=== PATIENT | female | born 1995 | race Caucasian/White ===

== ENCOUNTER 2022-08-08 18:45 | Inpatient (IN) | payer BC ==
[~2022-08-08] VITALS: Ht 160 cm; Wt 60.0 kg
[2022-08-08 20:00] LABS: BASOPHILS % (AUTO) 0.1 % (0-1); EOSINOPHILS # (AUTO) 0.1 X10'3 (0-0.9); EOSINOPHILS % (AUTO) 0.7 % (0-6); HEMATOCRIT 39.5 % (35.0-45.0); HEMOGLOBIN 13.7 g/dl (12.0-16.0); LYMPHOCYTES # (AUTO) 1.7 X10'3 (1.1-4.8); LYMPHOCYTES % (AUTO) 18.2 % (21-51); MEAN CORPUSCULAR HEMOGLOBIN 30.7 PG (27.0-31.0); MEAN CORPUSCULAR HGB CONC 34.7 g/dL (33.0-36.5); MEAN CORPUSCULAR VOLUME 88.5 FL (78-98); MONOCYTES # (AUTO) 0.6 X10'3 (0-0.9); MONOCYTES % (AUTO) 6.8 % (2-12); NEUTROPHILS # (AUTO) 6.9 X10'3 (1.8-7.7); NEUTROPHILS % (AUTO) 74.2 % (42-75); PLATELET COUNT 213 X10'3 (140-440); RED BLOOD COUNT 4.47 X10'6 (4.20-5.60); RED CELL DISTRIBUTION WIDTH 12.7 % (11.5-14.5); WHITE BLOOD COUNT 9.3 X10'3 (4.5-11.0)
[2022-08-08 20:14] LABS: ALANINE AMINOTRANSFERASE 28 U/L (12-78); ALBUMIN 4.2 G/DL (3.4-5.0); ALBUMIN/GLOBULIN RATIO 1.1 (1.1-1.5); ALKALINE PHOSPHATASE 57 IU/L (46-116); ANION GAP 9 (8-16); ASPARTATE AMINO TRANSFERASE 22 U/L (10-37); BILIRUBIN,TOTAL 0.7 MG/DL (0.1-1.0); BLOOD UREA NITROGEN 14 MG/DL (7-18); BUN/CREATININE RATIO 19.7 (6.6-38.0); CALCIUM 9.9 MG/DL (8.5-10.1); CHLORIDE 102 MMOL/L (99-107); CREATININE 0.71 MG/DL (0.40-0.90); ETHANOL < 0.010 GM/DL (0.0-0.010); GLUCOSE 103 MG/DL (70-104); POTASSIUM 3.6 MMOL/L (3.5-5.1); SODIUM 136 MMOL/L (135-145); TOTAL CARBON DIOXIDE 24.6 MMOL/L (24-32); eGFR > 90 ML/MIN
[2022-08-08 20:17] LABS: ACETAMINOPHEN < 2.0 UG/ML (10-30)
[2022-08-08] MEDS ORDERED: HYDR-3686 PO ×2 (22:39)
--- NOTE | 2022-08-08 22:41 | NUR ---
The patient moved to bed 24 in the ER overflow. She appears sad and depressed. She stated that approximately one year ago she was diagnoised bipolar 2 but has since gone off her medications because her and her are trying to have a baby. She has been very depressed and has been having increased suicidal thinking, poor sleep and high anxiety. Her is very supportive and he was made aware of the visiting hours.
--- NOTE | 2022-08-08 22:48 | NUR ---
; GLYNN [phone]
[2022-08-08 22:54] LABS: URINE HCG NEGATIVE (NEG)
[2022-08-08 22:57] LABS: CLARITY,URINE SLIGHTLY CLOUDY (Clear); COLOR,URINE YELLOW (Yellow); GLUCOSE, URINE NEGATIVE (Neg); KETONES,URINE >=80 mg/dl (Neg); LEUKOCYTE ESTERASE ,URINE NEGATIVE (Neg); NITRITES, URINE NEGATIVE (Neg); OCCULT BLOOD,URINE NEGATIVE (Neg); PH,URINE 5.5 (4.8-8.0); PROTEIN,URINE NEGATIVE (Neg); UROBILINOGEN,URINE 0.2 E.U/dL (0.2-1.0)
[2022-08-08 22:58] LABS: UA COLLECTION TYPE CLN CATCH MIDSTREAM
[2022-08-08 23:01] LABS: URINE AMPHETAMINE SCREEN NEGATIVE (Neg); URINE BARBITUATE SCREEN NEGATIVE (Neg); URINE BENZODIAZEPINES SCREEN NEGATIVE (Neg); URINE CANNABINOID SCREEN NEGATIVE (Neg); URINE COCAINE SCREEN NEGATIVE (Neg); URINE METHADONE SCREEN NEGATIVE (Neg); URINE OPIATE SCREEN NEGATIVE (Neg); URINE PHENCYCLIDINE SCREEN NEGATIVE (Neg)
[2022-08-08 23:03] LABS: BACTERIA,URINE 1+ /HPF (Neg); MUCUS STRANDS MANY /LPF (Neg); SQUAMOUS EPITHELIAL CELL,UR MANY /LPF (FEW)
[2022-08-08 23:04] LABS: RBC,URINE 0-2 /HPF (0-2); WBC,URINE 0-4 /HPF (0-4)
[2022-08-08 23:05] LABS: TRANSITIONAL EPI CELLS,URINE FEW /HPF
--- NOTE | 2022-08-09 00:10 | NUR ---
The patient appears to be sleeping
--- NOTE | 2022-08-09 00:11 | NUR ---
PACKET SENT TO [facility]
--- NOTE | 2022-08-09 01:25 | NUR ---
The patient appears to be sleeping
--- NOTE | 2022-08-09 03:05 | NUR ---
The patient is resting on her bed but restless at times
--- NOTE | 2022-08-09 05:04 | NUR ---
The patient appears to be sleeping
--- NOTE | 2022-08-09 07:05 | NUR ---
Patient awake early to call her work. Denies needs.
[2022-08-09] MEDS: hydrOXYzine 25 MG tablet PO SCH ×3 (07:14→21:00)
--- NOTE | 2022-08-09 08:00 | NUR ---
Patient chose not to eat breakfast. Denies needs.
--- NOTE | 2022-08-09 08:52 | NUR ---
Patient's Zeferino here to visit.
--- NOTE | 2022-08-09 10:46 | NUR ---
Patient's still here visiting his .
--- NOTE | 2022-08-09 11:38 | NUR ---
Patient appears to be sleeping. No s/sx of distress.
--- NOTE | 2022-08-09 13:45 | NUR ---
The patient is lying on her bed reading.
--- NOTE | 2022-08-09 14:44 | NUR ---
Patient accepted to [facility], who will take her up at ~1900.
--- NOTE | 2022-08-09 16:06 | NUR ---
Patient lying on her left side, attempting to fall asleep.
[2022-08-09] MEDS ORDERED: hydrOXYzine 25 MG tablet PO ONE (18:45)
[2022-08-09] MEDS ORDERED: mag hydrox/Alum hydrox/simeth 30ml oral suspension PO PRN (22:15)
[2022-08-09] MEDS ORDERED: magnesium hydroxide 30ml (MOM) UD suspension PO PRN (22:15)
[2022-08-09] MEDS ORDERED: loperamide 2mg capsule PO PRN (22:15)
[2022-08-09] MEDS ORDERED: traZODone 50mg tablet PO PRN (22:15)
[2022-08-09] MEDS ORDERED: acetaminophen 325mg tablet PO PRN ×2 (22:15)
[2022-08-09] MEDS ORDERED: LORazepam 1 MG tablet PO ONE (22:50)
[2022-08-09 23:19] VITALS: BP 113/74
--- NOTE | 2022-08-10 05:09 | NUR ---
MONUMENT CARVER NOTE: LEGAL HOLD: 5150 for DTS PSYCH HX: Reports diagnosis of Bipolar DO. Reports similar episode of suicidal ideation one year ago. Client is not taking [place] prescribed by her MD. No prior inpatient psych admits. Hx of childhood trauma. Depression/Anxiety. REASON FOR ADMIT: Client self-presented to ED c/o anxiety, depression, and suicidal ideation. She does not have a specific plan. Reported that she was getting things in order in the event of her . INTERVENTION: Admission assessments. Q 15 minute checks for safety. RESPONSE: Client arrived on the unit at 22:32, in a wheelchair, accompanied by Ari Mcneal. Client changed into green scrubs. Client was silent and continuously looked around the room. Affect and mood are anxious. Initially she did not make eye contact. Eventually client stated "I don't want to be here. I want to go home." This RN explained the 5150 process to client. She acknowledged understanding. Client accepted 1 mg Ativan PO for anxiety. She was escorted to her room. Fell asleep w/o difficulty.
[2022-08-10 08:00] VITALS: BP 109/67
[2022-08-10 10:18] LABS: CHOLESTEROL 228 MG/DL (0-200); HDL CHOLESTEROL 76 MG/DL (35-60); LDL CHOLESTEROL 127 MG/DL (50-100); TRIGLYCERIDES 57 MG/DL (20-135)
[2022-08-10 10:26] LABS: HEMOGLOBIN A1C 5.3 % (4.5-6.2)
[2022-08-10] MEDS: hydrOXYzine 25 MG tablet PO SCH ×3 (10:28→19:45)
--- NOTE | 2022-08-10 12:11 | NUR ---
Hazel is a 27 y/o female who presented to [facility] ED with suicidal ideation. She reported feeling depressed and hopeless. 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 She would not disclose a plan and reported a previous suicide attempt a year ago.She was previously diagnosed with Bipolar and stopped taking lithium due to a desire to conceive. She was placed on 5150 for danger to self and placed at [facility]. Irena presents as significantly depressed, "I just want to disappear". She reported she has been struggling with anxiety and "big emotions". She reported she has been taking hydroxyzine 4 times/day to help control anxiety. Ct reported she had an "episode and could not control my emotions". 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 She stated several times, "I just want to disappear". She reported she sees a psychiatrist locally, however, could not remember her name. She was previously in counseling while at [facility]. She reported difficulty finding a counselor. Irena gave writer technical publications verbal permission to call her , Zeferino. Will do so to gather additional information. MSE: A/O: oriented x's 4 Appearance: disheveled, malodorous Behavior:cooperative, scared Speech: WNL Mood: depressed Affect: depressed Thought Process: linear Thought Content: depressed, wants to disappear ROX Ureña Addendum: 08/10/22 at 1215 by Rebeca Lomax Amended: Links added.
--- NOTE | 2022-08-10 14:47 | NUR ---
: Zeferino-# [phone] Spoke to Hazel's , Zeferino, to try to gather additional information. He was not sure where she sees a psych provider or the persons name. He expressed concern that she may get discharged on Sun because he has to work on Saturday at 2 PM and cannot miss work. He reported there are no guns in the home. ROX Ureña
--- NOTE | 2022-08-10 15:34 | NUR ---
Nursing Progress Note: Problem : Client self-presented to ED c/o anxiety, depression, and suicidal ideation. She does not have a specific plan. Reported that she was getting things in order in the event of her .Reports diagnosis of Bipolar DO. Reports similar episode of suicidal ideation one year ago. Client is not taking [employer] prescribed by her MD. No prior inpatient psych admits. Hx of childhood trauma. Depression/Anxiety. Interventions : Introduced self and attempted to establish rapport, maintained a safe and supportive environment, provided clear and simple instructions, provided active listening and positive encouragement, encouraged participation on the unit, and maintained Q 15min safety checks. Response : Received pt. sleeping in bed at the beginning of the shift, she was awoken for breakfast however refused, and continued to sleep until approximately nine forty-five. Pt. then immediately attended a meeting with the case management social worker, and afterwards ate breakfast in her room and scheduled Atarax was administered. Pt. presents as cooperative, anxious, guarded and withdrawn. She makes what appears to be a delusional statement and questions this policy writer typist, "Who is in the bed next to me? 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 When questioned regarding S/I, pt. states, "I'm just sad." Pt. continues to perseverate on her desire to return home. She was able to make a telephone call to her and some belongings were dropped off for her. Pt. isolated in bed sleeping throughout much of the shift. She refused her scheduled afternoon dose of Atarax and stated, "I'm just going to sleep." Plan : Pt. requires interruption of current crisis, medication adjustments, and a safe and supportive environment.
[2022-08-10] MEDS: prazosin 1mg capsule PO SCH (19:46)
[2022-08-10 20:00] VITALS: BP 110/77
--- NOTE | 2022-08-11 01:26 | NUR ---
Nursing Progress Note: Problem : Client self-presented to ED c/o anxiety, depression, and suicidal ideation. She does not have a specific plan. Reported that she was getting things in order in the event of her .Reports diagnosis of Bipolar DO. Reports similar episode of suicidal ideation one year ago. Client is not taking [place] prescribed by her MD. No prior inpatient psych admits. Hx of childhood trauma. Depression/Anxiety. Interventions : Introduced self and attempted to establish rapport, maintained a safe and supportive environment, provided clear and simple instructions, provided active listening and positive encouragement, encouraged participation on the unit, and maintained Q 15min safety checks. Response : Patient in Rec room watching TV and eating dinner. Patient labile stating, "I dont belong here." Patient denies AV/H SI HI. pt reports feeling sad but no longer has a plan to harm herself. The patient continued to self isolate in Rec room watching TV for most of the evening. Patient ate snack in her room. Patient took evening meds w/o complications. The patient came to this nurse shortly after med pass that her room mate was speaking to herself and was scaring her. The patient began crying again reporting that she wasn't a bad person and she doesn't belong here. This nurse was able to calmly to talk to the patient about what was scaring her and offer her Trazodone for sleep. Trazodone was given with good effect. The patient went to bed shortly after. Plan : Pt. requires interruption of current crisis, medication adjustments, and a safe and supportive environment.
[2022-08-11 07:15] VITALS: BP_SYST 94; BP_SYST 95; BP_DIAS 56; BP_DIAS 60
--- NOTE | 2022-08-11 07:15 | NUR ---
At approximately 0715, pt. ambulated to the nurse's station, and on her way back to her room she became unsteady on her feet and was lowered to the ground assisted by two staff members. No injuries were obtained. Pt. was helped back to her feet and was assisted back to her room by two staff members, one on each side of her, per report she would occasionally state her legs were giving out and would put her whole weight on staff. This behavior appeared to be somewhat intentional in nature and dramatized. When in bed, pt's V/S were assessed and were WNL. Her blood sugar was obtained and was 118 and pt. accepted a snack. Afterwards, this investment underwriter assessed pt. and she stated, "I feel dizzy, nauseous, and I can't walk." Pt. attributes these feelings to her HS medications. Last night she took for the first time, Minipress 1mg and Trazodone 100mg, will endorse to the MD and continue to monitor pt. closely. Addendum: 08/11/22 at 1430 by Mari Jensen RN Endorsed incident to CONCHITA Murphy who endorsed to this investment underwriter to encourage pt. to increase her fluid intake. This investment underwriter provided education to pt. who reported understanding. Pt. is sitting up in the Recreation Room at this time watching TV.
[2022-08-11] MEDS ORDERED: lurasidone 20mg tablet PO SCH ×2 (07:30→18:00)
[2022-08-11 07:39] VITALS: BP 95/56
[2022-08-11 08:15] VITALS: BP 94/60
[2022-08-11] MEDS: hydrOXYzine 25 MG tablet PO SCH ×3 (09:03→21:00)
--- NOTE | 2022-08-11 17:18 | NUR ---
Nursing Progress Note: Problem : Client self-presented to ED c/o anxiety, depression, and suicidal ideation. She does not have a specific plan. Reported that she was getting things in order in the event of her .Reports diagnosis of Bipolar DO. Reports similar episode of suicidal ideation one year ago. Client is not taking [place] prescribed by her MD. No prior inpatient psych admits. Hx of childhood trauma. Depression/Anxiety. Interventions : Maintained a safe and supportive environment, provided clear and simple instructions, provided active listening and positive encouragement, encouraged participation on the unit, monitored for s/s of dizziness or nausea and provided pt. with soda and encouraged her to increase fluid intake, reported medication side effects to CONCHITA Murphy, and maintained Q 15min safety checks. Response : Received pt. sleeping in bed at the beginning of the shift she awoke and came to the nurse's station reporting nausea, dizziness, and difficulty with ambulation (see previous note). Pt. returned to bed and awoke later at approximately 0900 for breakfast which she ate in bed. This web content writer provided pt. with medication education regarding her ordered Latuda must be taken with at least 350 calories of food and she reported understanding. This web content writer completed 1:1 at bedside, pt. presents as slightly irritable, anxious, guarded and withdrawn. She is A&O x3, however reports that the month as July. Pt. reports she did not sleep last night, however recorded sleep hours are 6.75. She denies any current S/I, and then rolls away from this web content writer stating in a matter of fact manner, "I'm going back to sleep now." Pt's attempted to visit her during visiting hours, however pt. refused to go to the Group Room stating, "I don't feel good. Tell him I'll call him later." This web content writer offered to contact the MD to obtain an order for PRN Zofran for nausea, however pt. refused reporting she does not want to take any more medications. This web content writer obtained soda for pt. with effectiveness. Pt. again isolated in bed sleeping throughout much of the shift. She again refused her scheduled afternoon dose of Atarax and this was endorsed to CONCHITA Murphy. Pt. was observed to be up intermittently in the afternoon watching TV in the Recreation Room, she remains withdrawn from others. Pt. denies any further dizziness or nausea and appears to be ambulating without difficulty, will continue to monitor closely. Plan : Pt. continues to require medication adjustments, and a safe and supportive environment.
--- NOTE | 2022-08-11 18:13 | NUR ---
Pt. is up eating dinner at this time in the Group Room, per CONCHITA Murphy an additional 40mg of Latuda to be administered at this time (MD is aware pt. already received this medication this AM).
[2022-08-11 20:00] VITALS: BP 113/72
[2022-08-11] MEDS: prazosin 1mg capsule PO SCH (21:00)
--- NOTE | 2022-08-12 | NUR ---
Nursing Progress Note: Problem : Client self-presented to ED c/o anxiety, depression, and suicidal ideation. She does not have a specific plan. Reported that she was getting things in order in the event of her .Reports diagnosis of Bipolar DO. Reports similar episode of suicidal ideation one year ago. Client is not taking [place] prescribed by her MD. No prior inpatient psych admits. Hx of childhood trauma. Depression/Anxiety. Interventions : Maintained a safe and supportive environment, provided clear and simple instructions, provided active listening and positive encouragement, encouraged participation on the unit, monitored for s/s of dizziness or nausea and provided pt. with soda and encouraged her to increase fluid intake, reported medication side effects to CONCHITA Murphy, and maintained Q 15min safety checks. Response : Patient is interviewed in her room following shift change. This patient is well oriented in no distress. The patient denies S/I, H/I, or any hallucinations. The patient states no BM this shift, she states this is normal to go days without it. The patient requests Atarax instead of Trazadone, she doesn't want to awaken sleepy. 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 She is cooperative, linear, and is feeling positive of her future. Patient is medication compliant. Patient uses earplugs as her room mate is quite noisy. Plan : Pt. continues to require medication adjustments, and a safe and supportive environment.
[2022-08-12] MEDS: hydrOXYzine 25 MG tablet PO SCH ×4 (07:32→21:35)
[2022-08-12 08:00] VITALS: BP 112/76
[2022-08-12] MEDS ORDERED: hydrOXYzine 25 MG tablet PO PRN (14:15)
--- NOTE | 2022-08-12 17:39 | NUR ---
Nursing Progress Note: Hazel Problem : Client self-presented to ED c/o anxiety, depression, and suicidal ideation. She does not have a specific plan. Reported that she was getting things in order in the event of her . Reports diagnosis of Bipolar DO. Reports similar episode of suicidal ideation one year ago. Client is not taking [place] prescribed by her MD. No prior inpatient psych admits. Hx of childhood trauma. Depression/Anxiety. Interventions : Maintained a safe and supportive environment, provided clear and simple instructions, provided active listening and positive encouragement, encouraged participation on the unit, monitored for s/s of dizziness or nausea and provided pt. with soda and encouraged her to increase fluid intake, reported medication side effects to CONCHITA Murphy, and maintained Q 15min safety checks. Response : Received pt. asleep and awoke for her medication. She reports I feel good today, no anxiety pt. denies SI, HI, AH, VH. Pt. was out of her oom most of the morning reading a book and keeping to herself. At 1230 pt. refused her routing Atarax stating I dont need it, I feel fine but at 1500 pt. approached manual writer presenting as anxious and paranoid and lifting her legs up and down continuously. She requested her medication that was refused, but that was not an option, and no PRN available. Spoke to provider and N.O Atarax Q4hr received and administered. Pt. ate all meals in the dining room and isolates to self, she reported she was unable to participate in group. Pt. has good hygiene, hair brushed, and wearing scrubs. Plan : Pt. continues to require medication adjustments, and a safe and supportive environment.
[2022-08-12] MEDS ORDERED: lurasidone 20mg tablet PO SCH (18:00)
[2022-08-12 19:49] VITALS: BP 106/67
[2022-08-12] MEDS: prazosin 1mg capsule PO SCH ×2 (21:16→21:35)
--- NOTE | 2022-08-12 23:31 | NUR ---
Nursing Progress Note: Problem : Client self-presented to ED c/o anxiety, depression, and suicidal ideation. She does not have a specific plan. Reported that she was getting things in order in the event of her .Reports diagnosis of Bipolar DO. Reports similar episode of suicidal ideation one year ago. Client is not taking [place] prescribed by her MD. No prior inpatient psych admits. Hx of childhood trauma. Depression/Anxiety. Interventions : Maintained a safe and supportive environment, provided clear and simple instructions, provided active listening and positive encouragement, encouraged participation on the unit, monitored for s/s of dizziness or nausea and provided pt. with soda and encouraged her to increase fluid intake, reported medication side effects to CONCHITA Murphy, and maintained Q 15min safety checks. Response : Patient primarily isolates in her room tonight. She is well oriented, she sits at bedside and reads. Patients status in now voluntary. Patient denies S/I, H/I or any hallucination. Probable discharge home in am. Plan : Pt. continues to require medication adjustments, and a safe and supportive environment.
--- NOTE | 2022-08-13 07:30 | NUR ---
Initial: Pt admitted w/ bipolar disorder and SI per EMR. Currently on Regular diet w/ avg intake 50% of meals close to meeting est needs. Pt complains of intermittent nausea per soda fountain manager. [facility] 08/12. No nutrition intervention implemented at this time, will continue to monitor. Recs: 1. Continue Regular diet as tolerated; encourage PO 2. Bowel care PRN 3. Scaled wts Addendum: 08/13/22 at [address] Amended: Links added.
[2022-08-13] MEDS: hydrOXYzine 25 MG tablet PO SCH (07:42)
[2022-08-13 08:00] VITALS: BP 100/69
[2022-08-13] MEDS ORDERED: PRAZ1CAP5 PO (10:06)
[2022-08-13] MEDS ORDERED: LURA20TA PO (10:06)
--- NOTE | 2022-08-13 10:30 | NUR ---
Patient is discharging today. Scheduled [facility] follow up with [facility]. Provided her a list of therapists that accept her insurance. Provided her a letter for work and faxed it directly the her work at her request. Her will pick her up and take her home. ROX Ureña
--- NOTE | 2022-08-13 11:27 | NUR ---
Pt discharged home with . Pt ambulated independently off the unit accompanied by staff. Belongings inventoried and returned to patient. Personal medications returned to her from pharmacy. Pt was happy to be going home, stating "I can do this." Appointment scheduled on 08/20/22 at 4 PM with Silvia Avalos [address] [place] [address] [place] [id number], .
== END 2022-08-13 11:21 | disposition home or self-care (01) | DRG 885 ==
LOC: ER 18:46 → EDBD 18:46 → ED HOLD 08-09 14:45 → ADULT MH 08-09 22:14
PROVIDERS: ADMIT Psychiatry & Neurology Psychiatry; ATTEND Psychiatry & Neurology Psychiatry
DX: F31.9 Bipolar disorder, unspecified (principal); F06.1 Catatonic disorder due to known physiological condition; R45.851 Suicidal ideations; Z20.822 Contact with and (suspected) exposure to COVID-19; F41.9 Anxiety disorder, unspecified; F51.5 Nightmare disorder; Z91.018 Allergy to other foods; Z79.899 Other long term (current) drug therapy
CPT/HCPCS: 36415; 80053; 80061; 80305; 80320; 80329; 81001; 81025; 82948; 83036; 84443; 85025; 87081; 87635; 93005; 99285; C9803; Q0177

== ENCOUNTER 2023-03-18 08:51 | Emergency (ER) | payer BC ==
[~2023-03-18] VITALS: Ht 160 cm; Wt 59.0 kg
[~2023-03-18 08:51] MED LIST: HYDR-3686 PO; LURA20TA8 PO; PRAZ1CAP5 PO
[2023-03-18 09:02] VITALS: BP 107/80
[2023-03-18 09:36] LABS: BASOPHILS % (AUTO) 0.2 % (0-1); EOSINOPHILS % (AUTO) 0.7 % (0-6); HEMATOCRIT 40.9 % (35.0-45.0); HEMOGLOBIN 14.3 g/dl (12.0-16.0); LYMPHOCYTES # (AUTO) 1.6 X10'3 (1.1-4.8); LYMPHOCYTES % (AUTO) 22.7 % (21-51); MEAN CORPUSCULAR HEMOGLOBIN 30.8 PG (27.0-31.0); MEAN CORPUSCULAR VOLUME 87.8 FL (78-98); MEAN PLATELET VOLUME 8.3 FL (7.4-10.4); MONOCYTES # (AUTO) 0.4 X10'3 (0-0.9); MONOCYTES % (AUTO) 5.6 % (2-12); NEUTROPHILS # (AUTO) 4.9 X10'3 (1.8-7.7); NEUTROPHILS % (AUTO) 70.8 % (42-75); PLATELET COUNT 210 X10'3 (140-440); RED BLOOD COUNT 4.66 X10'6 (4.20-5.60); RED CELL DISTRIBUTION WIDTH 12.8 % (11.5-14.5); WHITE BLOOD COUNT 6.9 X10'3 (4.5-11.0)
[2023-03-18 09:48] LABS: ALANINE AMINOTRANSFERASE 14 U/L (12-78); ALBUMIN 4.1 G/DL (3.4-5.0); ALKALINE PHOSPHATASE 59 IU/L (46-116); ANION GAP 10 (8-16); ASPARTATE AMINO TRANSFERASE 13 U/L (10-37); BILIRUBIN,TOTAL 0.7 MG/DL (0.1-1.0); BLOOD UREA NITROGEN 12 MG/DL (7-18); CALCIUM 9.4 MG/DL (8.5-10.1); CHLORIDE 103 MMOL/L (99-107); CREATININE 0.75 MG/DL (0.40-0.90); GLUCOSE 115 MG/DL (70-104); POTASSIUM 3.4 MMOL/L (3.5-5.1); SODIUM 135 MMOL/L (135-145); TOTAL CARBON DIOXIDE 22.3 MMOL/L (24-32); TOTAL PROTEIN 8.2 G/DL (6.4-8.2); eGFR > 90 ML/MIN
[2023-03-18 10:16] LABS: LIPASE 177 U/L (73-393)
[2023-03-18 10:21] LABS: BETA HCG,QUANTITATIVE 48462 mIU/ml
[2023-03-18 11:16] LABS: COLOR,URINE YELLOW (Yellow); GLUCOSE, URINE NEGATIVE (Neg); KETONES,URINE TRACE mg/dl (Neg); LEUKOCYTE ESTERASE ,URINE NEGATIVE (Neg); NITRITES, URINE NEGATIVE (Neg); OCCULT BLOOD,URINE LARGE (Neg); PH,URINE 5.5 (4.8-8.0); PROTEIN,URINE NEGATIVE (Neg); UROBILINOGEN,URINE 0.2 E.U/dL (0.2-1.0)
[2023-03-18 11:17] LABS: URINE HCG POSITIVE (NEG)
--- NOTE | 2023-03-18 11:22 | NUR ---
ULTRASOUND IN ROOM
[2023-03-18 11:45] LABS: CLARITY,URINE SLIGHTLY CLOUDY (Clear); UA COLLECTION TYPE CLN CATCH MIDSTREAM
[2023-03-18 11:48] LABS: BACTERIA,URINE 1+ /HPF (Neg); MUCUS STRANDS NONE SEEN /LPF (Neg); SQUAMOUS EPITHELIAL CELL,UR MODERATE /LPF (FEW)
[2023-03-18 11:49] LABS: AMORPHOUS PHOSPHATES 1+
== END 2023-03-18 12:29 | disposition home or self-care (01) ==
LOC: ER 08:51
DX: O20.0 Threatened abortion (principal); Z3A.01 Less than 8 weeks gestation of pregnancy; F31.9 Bipolar disorder, unspecified; Z91.018 Allergy to other foods; Z79.899 Other long term (current) drug therapy
CPT/HCPCS: 36415; 76801; 76817; 80053; 81001; 81025; 83690; 84702; 85025; 86885; 86900; 86901; 87088; 99284